=== PATIENT | female | born 1975 | race Caucasian/White ===

== ENCOUNTER 2017-05-06 11:26 | Emergency (ER) | payer SELFPAY ==
[2017-05-06 11:32] VITALS: BP 126/89; PULSE 79; RESP 18; TEMP 98.1; O2SAT 99
--- NOTE | 2017-05-06 12:06 | C.PDOC ---
History Of Present Illness Mary Grace James, a 41 year old female, complains of pain to the left elbow s/p laceration repair yesterday. The patient states that while trying to pry open a window, the glass shattered and cut her elbow. She states that she was [place] [facility] [place] and an xray performed. The patient reports that the results of her X-ray were negative. Patient reports that she was discharged without pain medications. Time Seen by Provider: 05/06/17 11:36 Chief Complaint (Nursing): Upper Extremity Problem/Injury History Per: Patient History/Exam Limitations: no limitations Onset/Duration Of Symptoms: Days Current Symptoms Are (Timing): Still Present Past Medical History Reviewed: Historical Data, Nursing Documentation, Vital Signs Vital Signs: Last Vital Signs Temp 98.1 F 05/06/17 11:30 Pulse 79 05/06/17 11:30 Resp 18 05/06/17 11:30 BP 126/89 05/06/17 11:30 Pulse Ox 99 05/06/17 12:12 - Medical History PMH: No Chronic Diseases Surgical History: No Surg Hx Family History: States: Unknown Family Hx - Social History Hx Alcohol Use: Yes Hx Substance Use: Yes - Immunization History Hx Tetanus Toxoid Vaccination: No Hx Influenza Vaccination: No Hx Pneumococcal Vaccination: No Review Of Systems Constitutional: Negative for: Fever, Chills, Weakness Musculoskeletal: Positive for: Arm Pain, Other (Sutured laceration on left elbow.) Skin: Positive for: Other (laceration) Neurological: Negative for: Weakness, Numbness Physical Exam - Physical Exam Appears: Well, Non-toxic, No Acute Distress Skin: Normal Color, Warm, Dry, No Rash Head: Atraumatic, Normacephalic, No Tenderness, No Swelling Eye(s): bilateral: Normal Inspection, PERRL, EOMI Oral Mucosa: Moist Chest: Symmetrical, No Deformity, No Tenderness Cardiovascular: No Edema, No Murmur Respiratory: Normal Breath Sounds, No Rales, No Rhonchi, No Wheezing Extremity: No Normal ROM (Limited ROM of left arm secondary to pain), No Tenderness, No Deformity, No Swelling, Other (Sutured wound to posterior left elbow, no active bleeding. Normal Compartments.) Neurological/Psych: Oriented x3, Normal Speech, Normal Motor, Normal Sensation Gait: Steady ED Course And Treatment O2 Sat by Pulse Oximetry: 99 (RA) Pulse Ox Interpretation: Normal Medical Decision Making Medical Decision Making: Wound appears to be sutured well, no evidence of dehiscence or cellulitis at this time. Patient has Rx for antibiotics but did not fill it. Patient given Keflex dose now and was instructed to fill the Rx. Patient was instructed to follow up with orthopedic clinic out of other hospital. Disposition - Disposition Referrals: [facility] [Outside] Disposition: HOME/ ROUTINE Disposition Time: 12:34 Condition: GOOD Additional Instructions: fill your prescription of antibiotics. follow up with the Ortho clinic as instructed from the other hospital. Return if worsened. Prescriptions: Acetaminophen [Tylenol] 325 mg PO Q6 PRN #30 tab PRN Reason: Pain, Mild (1-3) Ibuprofen [Motrin] 600 mg PO TID #21 tab Instructions: Laceration (ED) Forms: [facility] (Bulgarian) - Clinical Impression Clinical Impression: Elbow laceration, Visit for wound check - Scribe Statement The provider has reviewed the documentation as recorded by the Scribe Anneliese Munoz All medical record entries made by the Scribe were at my direction and personally dictated by me. I have reviewed the chart and agree that the record accurately reflects my personal performance of the history, physical exam, medical decision making, and the department course for this patient. I have also personally directed, reviewed, and agree with the discharge instructions and disposition.
[2017-05-06] MEDS ORDERED: Bacitracin 500 Units/gm Oint Foilpak UD ONE (12:14)
== END 2017-05-06 12:40 | disposition home or self-care (01) ==
LOC: C.ER 11:26
DX: Z48.00 Encounter for change or removal of nonsurgical wound dressing (principal)
CPT/HCPCS: 96372; 99283; J1885